=== PATIENT | male | born 1980 | race Caucasian/White ===

== ENCOUNTER 2021-10-20 12:06 | Emergency (ER) | payer SELFPAY ==
[2021-10-20 13:09] LABS: #Basophils 0.1 thou/uL (0.0-0.2); #Eosinphils 0.1 thou/uL (0.0-0.7); #Lymphocytes 3.4 thou/uL (1.20-3.40); #Monocytes 0.9 thou/uL (0.11-0.59); #Neutrophils 7.2 thou/uL (1.40-6.50); %Basophils 0.9 % (0.0-1.0); %Eosinophils 0.9 % (0.0-10.0); %Lymphocytes 28.9 % (21.0-51.0); %Monocytes 7.7 % (0.0-10.0); %Neutrophils 61.6 % (42.0-75.0); Mean Corpuscular HGB CONC 34.3 g/dL (32.0-36.0); Mean Corpuscular Hemoglobin 30.8 pg (27.0-31.0); Mean Platelet Volume 6.6 fL (7.4-10.4); Platelet Count 316 thou/uL (130-400); RBC Distribution Width 12.5 % (11.5-14.5); Red Blood Cell (RBC) Count 4.86 mill/uL (4.70-6.10); White Blood Cell (WBC) Count 11.6 thou/uL (4.8-10.8)
[2021-10-20 13:33] LABS: Acetaminophen Less than 6.0 mcg/mL (10.0-30.0); Alcohol 311 mg/dL (Less than 10); CK (CPK) 195 U/L (30-200); Salicylate Less than 8.0 mg/dL (15.0-30.0)
[2021-10-20 13:53] LABS: ALT (SGPT) 27 U/L (8-55); AST (SGOT) 18 U/L (5-34); Alkaline Phosphatase 52 U/L (40-110); Anion Gap 14 mmol/L (10-20); BUN (Urea Nitrogen) 7 mg/dL (8.9-20.6); Bilirubin, Total 0.4 mg/dL (0.2-1.2); Calc. Creatinine Clearance 0 mL/min (70-130); Calcium 8.5 mg/dL (7.8-10.44); Carbon Dioxide 21 mmol/L (22-29); Chloride 104 mmol/L (98-107); Globulin 3.2 g/dL (2.4-3.5); Glucose 269 mg/dL (70-105); Lipase 224 U/L (8-78); Potassium 3.2 mmol/L (3.5-5.1); Protein, Total 7.2 g/dL (6.0-8.3); Sodium 136 mmol/L (136-145)
== END 2021-10-20 16:22 ==
LOC: ERS 12:06 → EDBD 12:06 → ERS 16:22
DX: R41.82 Altered mental status, unspecified (principal); F10.129 Alcohol abuse with intoxication, unspecified; Y90.8 Blood alcohol level of 240 mg/100 ml or more
CPT/HCPCS: 36415; 70450; 71045; 80053; 80307; 82140; 82550; 83690; 84146; 84443; 85025; 93005; 96365; 96366

== ENCOUNTER 2022-06-30 19:53 | Inpatient (IN) | payer BC, SELFPAY ==
[2022-06-30] MEDS ORDERED: Rocuronium Bromide 10 MG/ML (10ML VIAL) ONE (19:55)
[2022-06-30] MEDS ORDERED: Propofol 1,000 MG/100 ML VIAL IV ONE (19:57)
[2022-06-30] MEDS ORDERED: Fentanyl 100 MCG/2 ML VIAL ONE ×3 (20:10→22:44)
[2022-06-30 20:14] LABS: Actual Bicarbonate (HCO3a) 18.5 mEq/L (22-28); Analyzer IN Cardio ER; Base Excess (BEa) -7.6 mEq/L (-2.0 to +3.0); CO2 Tension 39.8 mmHg (35.0-45.0); Calcium, Ionized (arterial) 1.26 mmol/L (1.12-1.30); Carboxyhemoglobin (COHb) 0.1 gm% (0.0-3.0); Hemoglobin (Hb) 15.4 g/dL (14.0-18.0); O2 Tension (PaO2), arterial 104.7 mmHg (80.0-100.0); pH, Arterial 7.29 (7.35-7.45)
[2022-06-30 20:26] LABS: Bacteria/HPF None Seen HPF (None Seen); Bilirubin Negative (Negative); Blood, Urine Trace (Negative); Clarity Clear (Clear); Glucose, Urine (Dipstick) Normal (Negative); Ketone, Urine Negative (Negative); Leukocyte Negative Leu/uL (Negative); Mucous/LPF Rare LPF (<2+); Nitrite Negative (Negative); Protein, Urine (Dipstick) Negative (Neg-Trace); RBC/HPF 0-3 HPF (0-3); Specific Gravity, Urine 1.009 (1.002-1.036); Squamous Epithelial 0-3 HPF (0-3); Urobilinogen Normal mg/dL (Less than 2); WBC/HPF 0-3 HPF (0-3)
[2022-06-30 20:26] LABS: #Basophils 0.1 thou/uL (0.0-0.2); #Eosinphils 0.4 thou/uL (0.0-0.7); #Lymphocytes 4.9 thou/uL (1.20-3.40); #Neutrophils 8.6 thou/uL (1.40-6.50); %Basophils 0.7 % (0.0-1.0); %Lymphocytes 32.9 % (21.0-51.0); %Monocytes 6.5 % (0.0-10.0); Hemoglobin 15.6 g/dL (14.0-18.0); Mean Corpuscular Hemoglobin 31.4 pg (27.0-31.0); Mean Corpuscular Volume 92.2 fL (78.0-98.0); Mean Platelet Volume 6.7 fL (7.4-10.4); Platelet Count 333 thou/uL (130-400); RBC Distribution Width 12.8 % (11.5-14.5); Red Blood Cell (RBC) Count 4.99 mill/uL (4.70-6.10)
[2022-06-30 20:27] LABS: Amphetamine Not Detected (NotDetected); Barbiturates Screen Not Detected (NotDetected); Benzodiazepine Screen Detected (NotDetected); Cocaine Metabolite Screen Detected (NotDetected); Methadone Not Detected (NotDetected); Methamphetamine Not Detected (NotDetected); Opiate Screen Not Detected (NotDetected); Oxycodone Screen Not Detected (NotDetected); Phencyclidine (PCP) Not Detected (NotDetected); THC/Cannabinoid Screen Not Detected (NotDetected); Tricyclic Screen Not Detected (NotDetected)
[2022-06-30 20:27] LABS: Puncture Site RRA
[2022-06-30 20:39] LABS: ALT (SGPT) 23 U/L (8-55); AST (SGOT) 29 U/L (5-34); Albumin 4.4 g/dL (3.5-5.0); Alcohol 295 mg/dL (Less than 10); Alkaline Phosphatase 59 U/L (40-110); Anion Gap 20 mmol/L (10-20); BUN (Urea Nitrogen) 19 mg/dL (8.9-20.6); Bilirubin, Total 0.4 mg/dL (0.2-1.2); Calc. Creatinine Clearance 0 mL/min (70-130); Calcium 9.9 mg/dL (7.8-10.44); Carbon Dioxide 19 mmol/L (22-29); Chloride 106 mmol/L (98-107); Estimated GFR 81; Globulin 3.6 g/dL (2.4-3.5); Glucose 113 mg/dL (70-105); Potassium 3.9 mmol/L (3.5-5.1); Sodium 141 mmol/L (136-145)
[2022-06-30 20:46] LABS: Acetaminophen Less than 10.0 mcg/mL (10.0-30.0); Alcohol 290 mg/dL (Less than 10); Salicylate Less than 8.0 mg/dL (15.0-30.0)
[2022-06-30] MEDS ORDERED: Midazolam HCl 5 mg/ml Vial ONE (21:09)
[2022-06-30 21:15] LABS: SARS-CoV-2 NAA Rapid Test Not Detected (NotDetected)
[2022-06-30] MEDS ORDERED: NOREPINEPHRINE 8 MG/250 ML-D5W 250 ML ONE (22:06)
[2022-06-30] MEDS ORDERED: Sodium Chloride 0.9% 1,000 ML IV SCH (23:15)
[2022-06-30] MEDS ORDERED: Thiamine HCl 200 MG/2 ML VIAL IM SCH (23:30)
[2022-06-30] MEDS ORDERED: Fentanyl CADD 100 ML IV SCH (23:30)
[2022-06-30] MEDS ORDERED: Pantoprazole 40 MG VIAL IVP SCH (23:30)
[2022-06-30] MEDS ORDERED: Morphine 2 MG/ML VIAL SLOW IVP PRN (23:30)
[2022-06-30] MEDS ORDERED: DISCONTINUE PREVIOUS NARCOTIC PAIN MEDICATIONS AND BENZODIAZEPINES FS SCH (23:30)
[2022-06-30] MEDS ORDERED: Fentanyl BOLUS 250 ML IVPB PRN (23:30)
[2022-06-30] MEDS ORDERED: Propofol BOLUS 1,000 MG/100 ML VIAL IV PRN (23:30)
[2022-06-30] MEDS ORDERED: Electrolyte Replacement Protocol 1 EACH FS PRN (23:45)
[2022-06-30] MEDS ORDERED: Ondansetron ODT 4 MG TAB PO PRN (23:45)
[2022-07-01] MEDS ORDERED: Lorazepam 1 MG TAB PO PRN
[2022-07-01] MEDS: Midazolam HCl 2 mg/2 ml Vial SLOW IVP PRN ×3 (00:18→04:33)
[2022-07-01 00:41] LABS: Bilirubin, Direct 0.1 mg/dL (0.1-0.3); Magnesium 1.7 mg/dL (1.6-2.6); Phosphorus 3.8 mg/dL (2.3-4.7)
[2022-07-01] MEDS ORDERED: Magnesium 2 GM/50 ML(in water) 2 GM in Premix Bag 1 BAG IVPB SCH (02:00)
[2022-07-01] MEDS: Propofol 1,000 MG/100 ML VIAL IV PRN ×2 (02:06→05:51)
[2022-07-01 04:51] LABS: #Basophils 0.1 thou/uL (0.0-0.2); #Eosinphils 0.3 thou/uL (0.0-0.7); #Lymphocytes 4.1 thou/uL (1.20-3.40); #Monocytes 0.7 thou/uL (0.11-0.59); #Neutrophils 6.4 thou/uL (1.40-6.50); %Basophils 0.7 % (0.0-1.0); %Eosinophils 2.9 % (0.0-10.0); %Lymphocytes 35.5 % (21.0-51.0); %Monocytes 5.6 % (0.0-10.0); %Neutrophils 55.3 % (42.0-75.0); Hemoglobin 13.4 g/dL (14.0-18.0); Mean Corpuscular HGB CONC 33.2 g/dL (32.0-36.0); Mean Corpuscular Volume 93.2 fL (78.0-98.0); Mean Platelet Volume 7.1 fL (7.4-10.4); Platelet Count 300 thou/uL (130-400); RBC Distribution Width 12.8 % (11.5-14.5); Red Blood Cell (RBC) Count 4.31 mill/uL (4.70-6.10); White Blood Cell (WBC) Count 11.5 thou/uL (4.8-10.8)
[2022-07-01] MEDS: Sodium Chloride 0.9% 1,000 ML IV SCH ×4 (04:56→20:52)
[2022-07-01 05:08] LABS: Alcohol 108 mg/dL (Less than 10); Anion Gap 18 mmol/L (10-20); BUN (Urea Nitrogen) 16 mg/dL (8.9-20.6); Calc. Creatinine Clearance 174 mL/min (70-130); Calcium 8.6 mg/dL (7.8-10.44); Carbon Dioxide 17 mmol/L (22-29); Chloride 109 mmol/L (98-107); Estimated GFR 114; Glucose 84 mg/dL (70-105); Sodium 140 mmol/L (136-145)
[2022-07-01 06:47] LABS: Base Excess (BEa) -9.9 mEq/L (-2.0 to +3.0); Calcium, Ionized (arterial) 1.17 mmol/L (1.12-1.30); Carboxyhemoglobin (COHb) 0.3 gm% (0.0-3.0); Hemoglobin (Hb) 13.3 g/dL (14.0-18.0); O2 Tension (PaO2), arterial 151.4 mmHg (80.0-100.0); Potassium - ABG Lab 3.94 mmol/L (3.70-5.30); pH, Arterial 7.39 (7.35-7.45)
[2022-07-01 06:53] LABS: CO2 Tension 22.2 mmHg (35.0-45.0); Puncture Site RRA
[2022-07-01] MEDS ORDERED: Dexmedetomidine In 0.9 % NaCl 400 MCG in Premix Bag 1 BAG IVPB SCH (07:45)
[2022-07-01] MEDS ORDERED: Ondansetron ODT 4 MG TAB PO PRN (07:45)
[2022-07-01] MEDS ORDERED: Electrolyte Replacement Protocol 1 EACH FS PRN (07:45)
[2022-07-01] MEDS ORDERED: Lorazepam 2 MG/ML VIAL IM PRN (07:48)
[2022-07-01] MEDS: Lorazepam 1 MG TAB PO SCH ×3 (08:07→18:02)
[2022-07-01] MEDS ORDERED: Folic Acid 1 MG TAB PO SCH (09:00)
[2022-07-01] MEDS ORDERED: Multivit, Therapeutic 1 TAB PO SCH (09:00)
[2022-07-01] MEDS ORDERED: Thiamine HCl 200 MG/2 ML VIAL IM SCH (09:00)
[2022-07-01 09:05] VITALS: BMI 28.8
[2022-07-01] MEDS: Multivitamins, Adult 10 ML in Sodium Chloride 0.9% 1,000 ML IV SCH (09:51)
[2022-07-01] MEDS: Pantoprazole 40 MG VIAL IVP SCH (09:51)
[2022-07-01] MEDS: Folic Acid 1 MG TAB PO SCH (09:51)
[2022-07-01] MEDS: Thiamine HCl 200 MG/2 ML VIAL SLOW IVP SCH (09:56)
[2022-07-01 10:56] LABS: Syphilis Antibody Nonreactive (Nonreactive); Syphilis Antibody Index 0.12 S/CO (<1.00 Non-Reactive)
[2022-07-01 14:24] LABS: Hemoglobin A1c 6.2 % (4.0-6.0)
[2022-07-01] MEDS ORDERED: Empagliflozin 10 MG TAB PO SCH (16:00)
[2022-07-01] MEDS: Phenazopyridine HCl 100 MG TAB PO SCH (16:42)
[2022-07-01 16:59] LABS: Bacteria/HPF None Seen HPF (None Seen); Bilirubin Negative (Negative); Blood, Urine 2+ (Negative); Clarity Clear (Clear); Glucose, Urine (Dipstick) Normal (Negative); Ketone, Urine Negative (Negative); Leukocyte 25 Leu/uL (Negative); Nitrite Negative (Negative); Protein, Urine (Dipstick) Negative (Neg-Trace); Specific Gravity, Urine 1.017 (1.002-1.036); Squamous Epithelial 0-3 HPF (0-3); Urobilinogen Normal mg/dL (Less than 2)
[2022-07-02] MEDS: Lorazepam 1 MG TAB PO SCH ×3 (00:40→12:55)
[2022-07-02] MEDS: Thiamine HCl 200 MG/2 ML VIAL SLOW IVP SCH (05:44)
[2022-07-02] MEDS ORDERED: Lorazepam 1 MG TAB PO PRN (07:45)
[2022-07-02 07:59] LABS: #Eosinphils 0.4 thou/uL (0.0-0.7); #Lymphocytes 3.6 thou/uL (1.20-3.40); #Neutrophils 5.2 thou/uL (1.40-6.50); %Basophils 0.5 % (0.0-1.0); %Eosinophils 3.5 % (0.0-10.0); %Lymphocytes 35.5 % (21.0-51.0); %Monocytes 9.6 % (0.0-10.0); %Neutrophils 50.9 % (42.0-75.0); Hemoglobin 12.3 g/dL (14.0-18.0); Mean Corpuscular HGB CONC 32.3 g/dL (32.0-36.0); Mean Corpuscular Hemoglobin 30.3 pg (27.0-31.0); Mean Corpuscular Volume 93.9 fL (78.0-98.0); Mean Platelet Volume 6.8 fL (7.4-10.4); Platelet Count 252 thou/uL (130-400); RBC Distribution Width 12.7 % (11.5-14.5); Red Blood Cell (RBC) Count 4.05 mill/uL (4.70-6.10); White Blood Cell (WBC) Count 10.2 thou/uL (4.8-10.8)
[2022-07-02 08:24] LABS: Anion Gap 13 mmol/L (10-20); BUN (Urea Nitrogen) 11 mg/dL (8.9-20.6); Calc. Creatinine Clearance 152 mL/min (70-130); Calcium 8.3 mg/dL (7.8-10.44); Carbon Dioxide 22 mmol/L (22-29); Chloride 108 mmol/L (98-107); Estimated GFR 106; Glucose 141 mg/dL (70-105); Potassium 3.8 mmol/L (3.5-5.1); Sodium 139 mmol/L (136-145)
[2022-07-02 08:26] VITALS: BP 131/72; TEMP 98.7
[2022-07-02] MEDS: Pantoprazole 40 MG VIAL IVP SCH (08:34)
[2022-07-02] MEDS: Phenazopyridine HCl 100 MG TAB PO SCH ×3 (08:34→12:55)
[2022-07-02] MEDS: Multivitamins, Adult 10 ML in Sodium Chloride 0.9% 1,000 ML IV SCH (08:34)
[2022-07-02] MEDS: Folic Acid 1 MG TAB PO SCH (08:39)
[2022-07-02] MEDS ORDERED: Empagliflozin 10 MG TAB PO SCH (09:00)
[2022-07-02] MEDS ORDERED: Sulfameth/Trimethoprim DS 800-160mg TAB PO SCH (09:00)
[2022-07-02] MEDS: Sodium Chloride 0.9% 1,000 ML IV SCH (09:07)
[2022-07-02 12:03] LABS: Chlam.trachomatis by PCR,Urine Not Detected (NotDetected)
[2022-07-03] MEDS ORDERED: Lorazepam 0.5 MG TAB PO SCH (06:00)
[2022-07-03] MEDS ORDERED: Lorazepam 1 MG TAB PO PRN (07:45)
[2022-07-04] MEDS ORDERED: Lorazepam 0.5 MG TAB PO PRN (06:00)
[2022-07-04] MEDS ORDERED: Thiamine 100 MG TAB PO SCH (09:00)
== END 2022-07-02 14:25 | DRG 917 ==
LOC: ERS 19:53 → CCU 20:02 → T4-A 07-01 11:13
PROVIDERS: ADMIT Specialist; ATTEND Specialist
PROC: 5A1935Z Respiratory Ventilation, Less than 24 Consecutive Hours (ICD-10-PCS; principal; 2022-06-30)
PROC: 0BH17EZ Insertion of Endotracheal Airway into Trachea, Via Natural or Artificial Opening (ICD-10-PCS; 2022-06-30)
PROC: 0D9670Z Drainage of Stomach with Drainage Device, Via Natural or Artificial Opening (ICD-10-PCS; 2022-06-30)
PROC: 02HV33Z Insertion of Infusion Device into Superior Vena Cava, Percutaneous Approach (ICD-10-PCS; 2022-06-30)
PROC: B548ZZA Ultrasonography of Superior Vena Cava, Guidance (ICD-10-PCS; 2022-06-30)
PROC: HZ2ZZZZ Detoxification Services for Substance Abuse Treatment (ICD-10-PCS; 2022-06-30)
DX: T41.291A Poisoning by other general anesthetics, accidental (unintentional), initial encounter (principal); G93.41 Metabolic encephalopathy; R45.851 Suicidal ideations; F05 Delirium due to known physiological condition; F10.129 Alcohol abuse with intoxication, unspecified; F14.10 Cocaine abuse, uncomplicated; J45.909 Unspecified asthma, uncomplicated; T51.0X1A Toxic effect of ethanol, accidental (unintentional), initial encounter; F32.9 Major depressive disorder, single episode, unspecified; N18.9 Chronic kidney disease, unspecified; F43.10 Post-traumatic stress disorder, unspecified; E55.9 Vitamin D deficiency, unspecified; E78.5 Hyperlipidemia, unspecified; R06.03 Acute respiratory distress; E11.22 Type 2 diabetes mellitus with diabetic chronic kidney disease; F17.210 Nicotine dependence, cigarettes, uncomplicated; Y90.8 Blood alcohol level of 240 mg/100 ml or more; Z91.410 Personal history of adult physical and sexual abuse; Z85.528 Personal history of other malignant neoplasm of kidney; Z90.89 Acquired absence of other organs; Z90.5 Acquired absence of kidney; Z91.041 Radiographic dye allergy status; Z79.899 Other long term (current) drug therapy
CPT/HCPCS: 31500; 36415; 36556; 36600; 51702; 70450; 71045; 80048; 80053; 80306; 80307; 81003; 81015; 82248; 82805; 83036; 83735; 84100; 84443; 85025; 86780; 87086; 87491; 93005; 94002; 94003; 96374; 96375; 96376; C9113; J2250; J2704; J3010; J3411; J3475; J7050